=== PATIENT | female | born 1980 | race Two or more races ===

== ENCOUNTER 2017-08-30 14:55 | Outpatient (CLI) | payer MEDICAID | END 2017-08-30 14:56 | disposition critical access hospital (66) | LOC: EMS 14:55 | PROVIDERS: ATTEND Surgery | DX: R51 Headache (principal); F41.9 Anxiety disorder, unspecified; Z72.89 Other problems related to lifestyle | CPT/HCPCS: A0425; A0429 ==

== ENCOUNTER 2017-08-30 15:03 | Emergency (ER) | payer MEDICAID ==
[2017-08-30] MEDS ORDERED: LORazepam 2 MG/ML VIAL IVP STA (15:13)
[2017-08-30] MEDS ORDERED: SODIUM CHLORIDE 0.9% 1,000 ML IV ONE (15:13)
--- NOTE | 2017-08-30 15:16 | ED Physician Documentation ---
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 She is feeling somewhat better now. She had a presyncopal episode without full syncope or injury. No recent vomiting.) Review of Systems Ten Systems: 10 systems reviewed and negative Constitutional: reports: Fatigue. denies: Fever, Chills Nose: denies: Rhinorrhea / runny nose, Congestion Cardiac: reports: Palpitations. denies: Chest pain / pressure Respiratory: denies: Dyspnea, Cough GI: denies: Abdominal Pain, Nausea, Vomiting PD PAST MEDICAL HISTORY - Past Medical History Past Medical History: No Neuro: Headache/migraine - Past Surgical History Past Surgical History: Yes General: Appendectomy - Present Medications Home Medications: Ambulatory Orders Medication Instructions Recorded Confirmed Lorazepam [Ativan] 1 mg PO TID PRN #10 tablet 08/30/17 - Allergies Allergies/Adverse Reactions: Allergies Allergy/AdvReac Type Severity Reaction Status Date / Time No Known Drug Allergies Allergy Verified 02/23/16 10:24 - Social History Does the pt smoke?: Yes Smoking Status: Current some day smoker Does the pt drink ETOH?: Yes ETOH Use: Liquor Does the pt have substance abuse?: No - Immunizations Immunizations are current?: No Immunizations: TDAP >10years/unknown PD ED PE NORMAL - Vitals Vital signs reviewed: Yes (Tachycardic, hypertensive) - General General: Alert and oriented X 3, Other (Somewhat tremulous) - HEENT HEENT: PERRL, EOMI (Without nystagmus) - Neck Neck: Supple, no meningeal sign, No bony TTP - Cardiac Cardiac: RRR (Tachycardic, regular, no murmur) - Respiratory Respiratory: No respiratory distress, Clear bilaterally - Abdomen Abdomen: Normal bowel sounds, Soft, Non tender - Back Back: No CVA TTP, No spinal TTP - Derm Derm: Normal color, Warm and dry - Extremities Extremities: No edema, No calf tenderness / cord - Neuro Neuro: Alert and oriented X 3, Normal speech Eye Opening: Spontaneous Motor: Obeys Commands Verbal: Oriented GCS Score: 15 - Psych Psych: Normal mood, Normal affect Results - Vitals Vitals: Vital Signs - 24 hr 08/30/17 15:02 Temperature 37.2 C Heart Rate 127 H Respiratory 16 Rate Blood Pressure 139/110 H O2 Saturation 95 Oxygen O2 Source Room air - Labs Labs: Laboratory Tests 08/30/17 08/30/17 08/30/17 15:23 15:23 15:39 WBC 8.7 RBC 4.10 L Hgb 13.0 Hct 39.1 MCV 95.3 MCH 31.8 H MCHC 33.3 RDW 16.1 H Plt Count 282 MPV 7.6 L Neut # 7.5 H Lymph # 0.7 L [place] # 0.4 Eos # 0.0 Baso # 0.1 Absolute Nucleated RBC 0.00 Nucleated RBC % 0.0 Sodium 136 Potassium 4.0 Chloride 103 Carbon Dioxide 23 Anion Gap 10.0 BUN 13 Creatinine 0.7 Estimated GFR (MDRD) 94 Glucose 89 Calcium 9.1 Total Bilirubin 0.7 AST 39 ALT 24 Alkaline Phosphatase 98 Total Protein 8.0 Albumin 4.6 Globulin 3.4 Albumin/Globulin Ratio 1.4 Lipase 38 Urine Color YELLOW Urine Clarity SL. CLOUDY Urine pH 6.0 Ur Specific [place] >=1.030 H Urine Protein TRACE Urine Glucose (UA) NEGATIVE Urine Ketones TRACE Urine Occult Blood SMALL H Urine Nitrite POSITIVE H Urine Bilirubin NEGATIVE Urine Urobilinogen 0.2 (NORMAL) Ur Leukocyte Esterase NEGATIVE Urine RBC 0-5 Urine WBC 4-5 Ur Squamous Epith Cells MANY Squamous H Urine Bacteria Few Urine Mucus Marked Strands Ur Microscopic Review INDICATED Urine Culture Comments NOT INDICATED Urine HCG, Qual NEGATIVE Ethyl Alcohol 5.8 PD MEDICAL DECISION MAKING - ED course ED course: 37-year-old woman with kind of a combination of a panic attack and alcohol withdrawal, she was feeling much better after IV fluids and Ativan. She was much less shaky then too. Departure - Departure Disposition: 01 Home, Self Care Clinical Impression: Panic attack Alcohol withdrawal Qualifiers: Complication of substance-induced condition: uncomplicated Qualified Code(s): F10.230 - Alcohol dependence with withdrawal, uncomplicated Condition: Good Record reviewed to determine appropriate education?: Yes Instructions: ED Panic Attack, ED Withdrawal Alcohol Prescriptions: Lorazepam [Ativan] 1 mg PO TID PRN #10 tablet PRN Reason: Anxiety Comments: Call your doctor to arrange a follow-up appointment, make the next available appointment. In the interim, return anytime if worse or if new symptoms develop. Your blood pressure was elevated today on check into the emergency department. This does not mean that you have hypertension, it is a common phenomenon to come to the emergency department and have elevated blood pressure. I recommend that you see your primary care physician within the week to have it rechecked when you are feeling better.
[2017-08-30 15:44] LABS: BASOPHILS # (AUTO) 0.1 10^3/uL (0.0-0.1); EOSINOPHILS % (AUTO) 0.1 %; LYMPHOCYTES # (AUTO) 0.7 10^3/uL (1.5-3.5); LYMPHOCYTES % (AUTO) 8.3 %; MEAN CORPUSCULAR HEMOGLOBIN 31.8 pg (27.0-31.0); MEAN CORPUSCULAR HGB CONC 33.3 g/dL (32.0-36.0); MEAN CORPUSCULAR VOLUME 95.3 fL (81.0-99.0); MEAN PLATELET VOLUME 7.6 fL (7.9-10.8); MONOCYTES # (AUTO) 0.4 10^3/uL (0.0-1.0); MONOCYTES % (AUTO) 4.2 %; NEUTROPHILS # (AUTO) 7.5 10^3/uL (1.5-6.6); NEUTROPHILS % (AUTO) 86.4 %; PLT - PLATELET COUNT 282 10^3/uL (130-450); RED CELL DISTRIBUTION WIDTH 16.1 % (12.0-15.0); WHITE BLOOD COUNT 8.7 x10^3/uL (4.8-10.8)
[2017-08-30 15:46] LABS: ALBUMIN 4.6 g/dL (3.2-5.5); ALBUMIN/GLOBULIN RATIO 1.4 (1.0-2.2); BILIRUBIN,TOTAL 0.7 mg/dL (0.2-1.0); CALCIUM 9.1 mg/dL (8.5-10.3); CREATININE 0.7 mg/dL (0.4-1.0)
[2017-08-30 15:50] LABS: BILIRUBIN,URINE NEGATIVE (NEGATIVE); GLUCOSE, URINE (UA) NEGATIVE (NEGATIVE); KETONES,URINE (UA) TRACE mg/dL (NEGATIVE); LEUKOCYTE ESTERASE, URINE NEGATIVE (NEGATIVE); NITRITE,URINE POSITIVE (NEGATIVE); OCCULT BLOOD,URINE SMALL (NEGATIVE); PROTEIN,URINE TRACE mg/dL (NEGATIVE); UROBILINOGEN,URINE 0.2 (NORMAL) E.U./dL (NORMAL)
[2017-08-30 15:51] LABS: CLARITY,URINE SL. CLOUDY (CLEAR); HCG UR QUAL NEGATIVE
[2017-08-30 16:11] LABS: BACTERIA,URINE Few /HPF (None Seen); MUCUS,URINE Marked Strands; RBC,URINE 0-5 /HPF (0-5); SQUAMOUS EPITHELIAL CELL,UR MANY Squamous (<= Few)
[2017-08-30 16:45] VITALS: BP 124/80
== END 2017-08-30 16:52 | disposition home or self-care (01) ==
LOC: EDUNIT# → ED 15:03
DX: F41.0 Panic disorder [episodic paroxysmal anxiety] (principal); F10.230 Alcohol dependence with withdrawal, uncomplicated; R03.0 Elevated blood-pressure reading, without diagnosis of hypertension; F17.200 Nicotine dependence, unspecified, uncomplicated
CPT/HCPCS: 36415; 80053; 80320; 81001; 81025; 83690; 85025; 96361; 96374; 99283; J2060; 81003; 87086

== ENCOUNTER 2020-03-29 18:04 | Emergency (ER) | payer MEDICAID ==
--- NOTE | 2020-03-29 20:06 | ED Physician Documentation ---
PD HPI FEMALE - Stated complaint Stated Complaint: FEMALE - Chief complaint Chief Complaint: UTI - History obtained from History obtained from: Patient - History of Present Illness Timing - onset: How many days ago (2-3) Timing - duration: Days (2-3) Timing - details: Gradual onset, Still present Associated symptoms: Dysuria, Urinary frequency, Other Contributing factors: Sexually active. No: Exposed to STD Similar symptoms before: Has not had sx before Recently seen: Not recently seen Review of Systems Constitutional: denies: Fever, Chills Nose: denies: Rhinorrhea / runny nose, Congestion Throat: denies: Sore throat Respiratory: denies: Cough : reports: Dysuria, Frequency. 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 - Past Surgical History Past Surgical History: Yes General: Appendectomy - Present Medications Home Medications: Ambulatory Orders Medication Instructions Recorded Confirmed Lorazepam [Ativan] 1 mg PO TID PRN #10 tablet 08/30/17 HYDROcod/ACETAM 5/325 [[place] 5/325] 1 ea PO Q6H PRN #12 tablet 03/29/20 metroNIDAZOLE [Flagyl] 500 mg PO BID #20 tablet 03/29/20 - Allergies Allergies/Adverse Reactions: Allergies Allergy/AdvReac Type Severity Reaction Status Date / Time codeine Allergy Rash Verified 03/29/20 18:13 - Social History Does the pt smoke?: Yes Smoking Status: Current some day smoker Does the pt drink ETOH?: Yes Does the pt have substance abuse?: No - Immunizations Immunizations are current?: No Immunizations: TDAP >10years/unknown PD ED PE NORMAL - Vitals Vital signs reviewed: Yes - General General: Alert and oriented X 3, No acute distress, Well developed/nourished - Abdomen Abdomen: Soft, Non tender, Non distended - Female 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 ) - Rectal Rectal: Deferred - Back Back: No CVA TTP - Derm Derm: Normal color, Warm and dry Results - Vitals Vitals: Vital Signs - 24 hr 03/29/20 03/29/20 18:07 21:39 Temperature 36.2 C L 36.7 C Heart Rate 98 Respiratory 14 Rate Blood Pressure 100/75 120/76 O2 Saturation 99 Oxygen O2 Source Room air - Labs Labs: Laboratory Tests 03/29/20 20:13 Urine Color YELLOW Urine Clarity CLOUDY Urine pH 6.5 Ur Specific [place] >=1.030 H Urine Protein 30 H Urine Glucose (UA) NEGATIVE Urine Ketones >=80 H Urine Occult Blood TRACE-INTA Urine Nitrite NEGATIVE Urine Bilirubin NEGATIVE Urine Urobilinogen 1 (NORMAL) Ur Leukocyte Esterase MODERATE H Urine RBC 11-25 H Urine WBC >25 H Ur Squamous Epith Cells FEW Squamous Urine Bacteria Many H Urine Trichomonas PRESENT H Ur Microscopic Review INDICATED Urine Culture Comments INDICATED Urine HCG, Qual NEGATIVE PD MEDICAL DECISION MAKING - ED course Complexity details: reviewed results, considered differential, d/w patient Departure - Departure Disposition: 01 Home, Self Care Clinical Impression: Bacterial vaginosis, Dysuria Condition: Stable Record reviewed to determine appropriate education?: Yes Instructions: ED Vaginosis Bacterial Prescriptions: metroNIDAZOLE [Flagyl] 500 mg PO BID #20 tablet HYDROcod/ACETAM 5/325 [[place] 5/325] 1 ea PO Q6H PRN #12 tablet PRN Reason: Pain Comments: It does appear to be a bacterial vaginitis clinically. We will treated with antibiotics as well as some pain medicine if needed. I would anticipate improvement over the next several days. The culture swabs obtained will result in a day or 2 and we typically will call you with positive results. Tylenol or ibuprofen as needed for pains. Add pain medicine if needed. Discharge Date/Time: 03/29/20 21:39
[2020-03-29 20:51] LABS: GLUCOSE, URINE (UA) NEGATIVE (NEGATIVE); KETONES,URINE (UA) >=80 mg/dL (NEGATIVE); LEUKOCYTE ESTERASE, URINE MODERATE (NEGATIVE); NITRITE,URINE NEGATIVE (NEGATIVE); OCCULT BLOOD,URINE TRACE-INTA (NEGATIVE); PH,URINE 6.5 PH (5.0-7.5); PROTEIN,URINE 30 mg/dL (NEGATIVE); UROBILINOGEN,URINE 1 (NORMAL) E.U./dL (NORMAL)
[2020-03-29] MEDS ORDERED: LIDOCAINE 1% 2 ML VIAL MC ONE (20:54)
[2020-03-29] MEDS ORDERED: AZITHROMYCIN 250 MG TABLET PO STA (20:54)
[2020-03-29] MEDS ORDERED: cefTRIAXone 1 GM VIAL IM STA (20:54)
[2020-03-29] MEDS ORDERED: HYDROcod/ACETAM 5/325 MG TABLET PO STA (20:55)
[2020-03-29 21:01] LABS: BILIRUBIN,URINE NEGATIVE (NEGATIVE); CLARITY,URINE CLOUDY (CLEAR); HCG UR QUAL NEGATIVE; ICTOTEST,URINE NEGATIVE; SQUAMOUS EPITHELIAL CELL,UR FEW Squamous (<= Few)
[2020-03-29 21:02] LABS: BACTERIA,URINE Many /HPF (None Seen); TRICHOMONAS,URINE PRESENT (None Seen)
[2020-03-29 21:41] VITALS: BP 120/76
[2020-03-30 02:02] LABS: TRICHOMONAS VAGINALIS DNA POSITIVE (NEGATIVE)
[2020-03-30 04:19] LABS: CANDIDA GROUP DNA NEGATIVE (NEGATIVE); CANDIDA KRUSEI DNA NEGATIVE (NEGATIVE); TRICHOMONAS VAGINALIS DNA POSITIVE (NEGATIVE)
== END 2020-03-29 21:39 | disposition home or self-care (01) ==
LOC: ED 18:04
DX: N76.0 Acute vaginitis (principal); R30.0 Dysuria; F17.200 Nicotine dependence, unspecified, uncomplicated
CPT/HCPCS: 81001; 81025; 87086; 87481; 87491; 87591; 87661; 87801; 96372; 99283; A9270; 81003

== ENCOUNTER 2020-05-29 18:04 | Outpatient (CLI) | payer MEDICAID ==
--- NOTE | 2020-05-29 20:22 | Ultrasound Report ---
PROCEDURE: Pelvic w/Transvaginal INDICATIONS: ABNORMAL VAGINAL BLEEDING TECHNIQUE: Real-time scanning was performed of the pelvic organs, with image documentation. Additional endovagi nal scanning was necessary due to incomplete visualization of the adnexal and endometrial structures by transabdominal scanning. COMPARISON: None. FINDINGS: Transabdominal scanning: Limited scanning through the kidneys shows no hydronephrosis. No pathologi c free abdominal fluid. Small amount of pelvic free fluid is noted. Endovaginal scanning: Uterus: Uterus is normal in size at 8.6 x 4.2 x 5.3 cm. The endometrium measures 15.4 mm in combine d thickness. There is no gross endometrial mass or fluid. 2.8 x 2.3 x 2.6 cm submucosal fibroid in l eft anterior myometrium near midline is seen. Multiple nabothian cysts are noted within endocervical canal. The largest cyst contains internal debris. Ovaries: Right ovary measures 2.9 x 2.4 x 2.2 cm in size. Left ovary measures 7.1 x 4.3 x 7.8 cm in size. A 6.7 x 3.7 x 7 cm cyst is seen in left ovary with low-level internal echo . Complex hypoechoic lesion is noted within right adnexa and measures 2.9 x 2 x 2.5 cm in size. Internal vascularity is n oted. Largest right ovarian follicle 2 x 1.1 x 1.3 cm in size. IMPRESSION: 1. No discrete endometrial mass or fluid. Multiple nabothian cysts along the endocervical canal as ab ove. 2.8 cm uterine fibroid as above. 2. 2.9 x 2 x 2.5 cm complex appearing hypoechoic lesion is seen in right adnexa adjacent to right ova ry with internal vascularity. Benign or malignant neoplasm is suspected. FOOD CRITIC correlation and follow-u p is recommended. 3. Possible hemorrhagic cyst or complex cyst is seen in left ovary. No gross solid-appearing left ova franklin lesion or adnexal mass. Reviewed by: Feliz Lopes MD on 05/29/2020 8:20 PM PST Approved by: Feliz Lopes MD on 05/29/2020 8:20 PM PST Station ID: [id number]
== END 2020-05-29 18:05 | disposition home or self-care (01) ==
LOC: DI 18:04
PROVIDERS: ATTEND Nurse Practitioner
DX: N93.9 Abnormal uterine and vaginal bleeding, unspecified (principal); D25.0 Submucous leiomyoma of uterus; N88.8 Other specified noninflammatory disorders of cervix uteri

== ENCOUNTER 2020-06-20 08:57 | Emergency (ER) | payer MEDICAID ==
[2020-06-20 09:04] VITALS: BP 115/78
[2020-06-20] MEDS ORDERED: PENICILLIN VK 250 MG TABLET PO STA (09:23)
[2020-06-20] MEDS ORDERED: HYDROcod/ACETAM 5/325 MG TABLET PO STA (09:23)
--- NOTE | 2020-06-20 09:26 | ED Physician Documentation ---
History of Present Illness - Stated complaint Stated Complaint: RT JAW PX, RT JAW SWELLING - Chief complaint Chief Complaint: Heent - History obtained from History obtained from: Patient - History of Present Illness Timing: How many weeks ago (1) Pain level max: 0 Pain level now: 0 - Additonal information Additional information: 39-year-old female presents to the emergency department for right-sided jaw pain. She states she is scheduled to see her dentist in 4 days. She states that the pain has increased and that she was told to come here for antibiotics and/or pain medication. No fevers. No chills. Nothing makes that better or worse. No relief with Tylenol and Motrin. Denies any possibility of . No vomiting. No recent illness. 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 - Past Surgical History Past Surgical History: Yes General: Appendectomy - Present Medications Home Medications: Ambulatory Orders Medication Instructions Recorded Confirmed HYDROcod/ACETAM 5/325 [[place] 5/325] 1 - 2 ea PO Q6H PRN #14 tablet 06/20/20 Penicillin V Potassium 500 mg PO Q6HR #40 tablet 06/20/20 - Allergies Allergies/Adverse Reactions: Allergies Allergy/AdvReac Type Severity Reaction Status Date / Time codeine Allergy Rash Verified 06/20/20 09:00 - Social History Does the pt smoke?: Yes Smoking Status: Current every day smoker Does the pt drink ETOH?: Yes Does the pt have substance abuse?: No - Immunizations Immunizations are current?: No Immunizations: TDAP >10years/unknown PD ED PE NORMAL - Vitals Vital signs reviewed: Yes - General General: Alert and oriented X 3, No acute distress - HEENT HEENT: Moist mucous membranes (Poor dentition, dental caries visible on several upper molars. No gingival swelling or abscess. Normal phonation. No trismus) - Neck Neck: Supple, no meningeal sign, No adenopathy - Cardiac Cardiac: RRR - Respiratory Respiratory: No respiratory distress, Clear bilaterally - Derm Derm: Warm and dry - Neuro Neuro: Alert and oriented X 3 Results - Vitals Vitals: Vital Signs - 24 hr 06/20/20 09:00 Temperature 36.9 C Heart Rate 97 Respiratory 19 Rate Blood Pressure 115/78 O2 Saturation 97 Oxygen O2 Source Room air PD MEDICAL DECISION MAKING - ED course Complexity details: considered differential, d/w patient ED course: 39-year-old female with dental caries. Will place on antibiotics and pain medication and have her follow-up with her dentist for further care. No abscess. Normal phonation. No trismus. Patient counseled regarding signs and symptoms for which I believe and urgent re-evaluation would be necessary. Patient with good understanding of and agreement to plan and is comfortable going home at this time This document was made in part using voice recognition software. While efforts are made to proofread this document, sound alike and grammatical errors may occur. Departure - Departure Disposition: 01 Home, Self Care Clinical Impression: Dental caries Condition: Good Instructions: ED Cavity Dental Follow-Up: your,dentist this week [Other] Prescriptions: Penicillin V Potassium 500 mg PO Q6HR #40 tablet HYDROcod/ACETAM 5/325 [[place] 5/325] 1 - 2 ea PO Q6H PRN #14 tablet PRN Reason: Pain Comments: Take all antibiotics until gone. Return if you worsen. Follow-up with your dentist this week as scheduled. Do not drink alcohol or drive while on narcotic pain medicine. Note that many narcotic pain relievers also contain tylenol/acetaminophen. Please ensure that your total dose of acetaminophen from all sources does not exceed 3 grams (3000mg) per day. You may constipated on this medication, take a stool softener such as "Colace" twice a day while you are on it. Also recommend a [id number] laxative such as senna or MiraLAX any day that you do not have a bowel movement. If you received narcotic pain medication in the emergency department, do not drive or operate machinery for the next 24 hours.
== END 2020-06-20 09:39 | disposition home or self-care (01) ==
LOC: ED 08:57
DX: K02.9 Dental caries, unspecified (principal); F17.200 Nicotine dependence, unspecified, uncomplicated
CPT/HCPCS: 99282; 99284; A9270

== ENCOUNTER 2020-07-12 14:59 | Outpatient (CLI) | payer MEDICAID ==
--- NOTE | 2020-07-13 10:43 | Ultrasound Report ---
PROCEDURE: Pelvic w/Transvaginal INDICATIONS: ADNEXAL MASS TECHNIQUE: Real-time scanning was performed of the pelvic organs, with image documentation. Additional endovagi nal scanning was necessary due to incomplete visualization of the adnexal and endometrial structures by transabdominal scanning. COMPARISON: None. FINDINGS: No pathologic free abdominal or pelvic fluid. Uterus: Uterus is normal in size at 7.4 x 3.7 x 4.6 cm, with a volume of 73.3 mL The endometrium me asures 6 mm in combined thickness. Ovaries: Right ovary measures 3.0 x 1.6 x 2.2 cm, with a volume of 5.3 mL. There are multiple cysts, the largest of which measures 3.3 x 3.4 x 3.6 cm. Left ovary measures 2.4 x 3.1 x 1.9 cm, with a vol ume of 7.7 mL. Multiple cysts, possibly ovarian versus paraovarian. The largest cyst measures 6.6 x 4 .5 x 6.0 cm. IMPRESSION: 1. Multiple bilateral ovarian or paraovarian cysts. These are all simple cysts. The largest is on the left, measuring 6.6 cm in maximum diameter. Reviewed by: Kurt Lyons MD on 07/13/2020 10:42 AM PST Approved by: Kurt Lyons MD on 07/13/2020 10:42 AM PST Station ID: [id number]
== END 2020-07-12 15:00 | disposition home or self-care (01) ==
LOC: DI 14:59
PROVIDERS: ATTEND Obstetrics & Gynecology
DX: R19.09 Other intra-abdominal and pelvic swelling, mass and lump (principal); N83.201 Unspecified ovarian cyst, right side; N83.202 Unspecified ovarian cyst, left side

== ENCOUNTER 2020-07-14 13:35 | Outpatient (CLI) | payer MEDICAID ==
[2020-07-14 13:58] LABS: BASOPHILS # (AUTO) 0.1 10^3/uL (0.0-0.1); BASOPHILS % (AUTO) 1.6 %; EOSINOPHILS # (AUTO) 0.2 10^3/uL (0.0-0.7); EOSINOPHILS % (AUTO) 4.2 %; LYMPHOCYTES % (AUTO) 35.4 %; MEAN CORPUSCULAR HEMOGLOBIN 30.8 pg (27.0-31.0); MEAN CORPUSCULAR HGB CONC 32.7 g/dL (32.0-36.0); MEAN CORPUSCULAR VOLUME 94.3 fL (81.0-99.0); MEAN PLATELET VOLUME 9.8 fL (7.9-10.8); MONOCYTES # (AUTO) 0.3 10^3/uL (0.0-1.0); NEUTROPHILS % (AUTO) 52.4 %; PLT - PLATELET COUNT 409 10^3/uL (130-450); RED BLOOD COUNT 4.22 10^6/uL (4.20-5.40); RED CELL DISTRIBUTION WIDTH 13.7 % (12.0-15.0); WHITE BLOOD COUNT 5.7 x10^3/uL (4.8-10.8)
[2020-07-14 14:16] LABS: ALBUMIN 4.3 g/dL (3.2-5.5); ALBUMIN/GLOBULIN RATIO 1.2 (1.0-2.2); ALKALINE PHOSPHATASE 97 IU/L (42-121); ALT ALANINE AMINOTRANSFERASE 16 IU/L (10-60); AST ASPARTATE AMINOTRANSFERASE 18 IU/L (10-42); BILIRUBIN,TOTAL 0.8 mg/dL (0.2-1.0); BUN - BLOOD UREA NITROGEN 13 mg/dL (6-20); CALCIUM 9.4 mg/dL (8.5-10.3); CARBON DIOXIDE - CO2 22 mmol/L (21-32); CHLORIDE 102 mmol/L (101-111); CHOL/HDL RATIO 2.7 (<4.4); CHOLESTEROL 232 mg/dL; CREATININE 0.6 mg/dL (0.4-1.0); GLUCOSE 140 mg/dL (70-100); HDL CHOLESTEROL 86 mg/dL; LDL CHOLESTEROL,CALCULATED 132 mg/dL; LDL/HDL RATIO 1.5 (<4.4); TOTAL PROTEIN 7.9 g/dL (6.7-8.2); VLDL CHOLESTEROL 14 mg/dL
== END 2020-07-14 13:36 | disposition home or self-care (01) ==
LOC: LAB 13:35
PROVIDERS: ATTEND Obstetrics & Gynecology
DX: Z00.00 Encounter for general adult medical examination without abnormal findings (principal); R19.09 Other intra-abdominal and pelvic swelling, mass and lump; Z13.228 Encounter for screening for other metabolic disorders; Z13.29 Encounter for screening for other suspected endocrine disorder; E78.5 Hyperlipidemia, unspecified
CPT/HCPCS: 36415; 80053; 80061; 82378; 83721; 84443; 85025; 86304